=== PATIENT | male | born 1945 | race Caucasian/White ===

== ENCOUNTER 2021-01-26 15:53 | Outpatient (REF) | payer MEDICARE, BC, SELFPAY ==
[2021-01-26 20:53] LABS: HCT 38.4 % (40.0-50.0); HGB 12.3 g/dL (13.5-17.5); MCH 29.5 pg (27.0-33.0); MCV 92.1 fL (80-95); MPV 9.8 fL (8.0-11.0); Platelet Count 193 10^3/uL (130-400); RBC 4.17 10^6/uL (4.36-5.78); RDW 13.5 % (11.8-14.1); RDW-SD 45.6 fL; WBC 5.01 10^3/uL (4.4-10.8)
[2021-01-26 21:38] LABS: ALT 11 U/L (16-63); AST 20 U/L (15-37); Albumin 4.5 g/dL (3.4-5.0); Alkaline Phosphatase 60 U/L (46-116); Anion Gap 7.8 mmol/L (3-11); BUN 21 mg/dL (7-18); Bilirubin, Total 0.3 mg/dL (0.2-1.0); CO2 29.2 mmol/L (21.0-32.0); CREATININE 0.8 mg/dL (0.70-1.30); Calcium 9.9 mg/dL (8.5-10.1); Chloride 105 mmol/L (98-107); Glucose 78 mg/dL (74-106); Potassium 5.3 mmol/L (3.5-5.1); Sodium 142 mmol/L (136-145); TSH (W/Ref FT4) 0.91 uIU/mL (0.36-3.74)
== END 2021-01-26 15:54 | disposition home or self-care (01) ==
LOC: NCHCN 15:53
PROVIDERS: Visit Provider Nurse Practitioner Family
DX: E06.3 Autoimmune thyroiditis (principal); D51.0 Vitamin B12 deficiency anemia due to intrinsic factor deficiency; I10 Essential (primary) hypertension
CPT/HCPCS: 80053; 85027; 84443

== ENCOUNTER 2021-07-24 08:27 | Outpatient (CLI) | payer MEDICARE, BC, SELFPAY ==
--- NOTE | 2021-07-24 08:15 | RT.EKG_ITS ---
APPROVED REPORT Exam: Resting ECG Reason for Exam: MR Patient Location: O HR:83 bpm ECG Measurements Heart Rate 83 AXIS ND 153 P 67 QRSd 91 QRS -13 QT 391 T -60 QTc 460 Conclusion Sinus rhythm...normal P axis, V-rate 50- 99 Probable left atrial enlargement...P >50mS, <-0.10mV V1 Left ventricular hypertrophy...multiple voltage criteria Borderline T abnormalities, inferior leads...T flat/neg, II III aVF
== END 2021-07-24 08:28 | disposition home or self-care (01) ==
LOC: DI.CARD 08:28
PROVIDERS: Visit Provider Internal Medicine Cardiovascular Disease
DX: I34.0 Nonrheumatic mitral (valve) insufficiency (principal); I51.7 Cardiomegaly; R94.31 Abnormal electrocardiogram [ECG] [EKG]
CPT/HCPCS: 93010

== ENCOUNTER → 2021-07-24 10:20 | Outpatient (BNVA) | payer MEDICARE, BC, SELFPAY | PROVIDERS: PCP Nurse Practitioner Family; Visit Provider Internal Medicine Cardiovascular Disease | DX: I34.0 Nonrheumatic mitral (valve) insufficiency (principal); I10 Essential (primary) hypertension; M32.9 Systemic lupus erythematosus, unspecified | CPT/HCPCS: 93005; 99203 ==

== ENCOUNTER 2021-08-30 13:01 | Outpatient (REF) | payer MEDICARE, BC, SELFPAY ==
[2021-08-30 22:15] LABS: Abs Immature Grans 0.01 10^3/uL (0.0-0.06); Absolute Basophil Count 0.06 10^3/uL (0.0-0.2); Absolute Eosinophil Count 0.09 10^3/uL (0.0-0.7); Absolute Monocyte Count 0.67 10^3/uL (0.1-0.8); Absolute Neutrophil Count 4.57 10^3/uL (1.2-6.7); Basophils % 0.8; Eosinophils % 1.3; HCT 38.7 % (40.0-50.0); HGB 12.4 g/dL (13.5-17.5); Immature Grans % 0.1; MCH 29.9 pg (27.0-33.0); MCV 93.3 fL (80-95); MPV 9.3 fL (8.0-11.0); Monocytes % 9.3; Neutrophils % 63.5; Nucleated RBC 0 %; Platelet Count 257 10^3/uL (130-400); RBC 4.15 10^6/uL (4.36-5.78); RDW 13.2 % (11.8-14.1); RDW-SD 45.3 fL
[2021-08-30 22:51] LABS: ALT 13 U/L (16-63); AST 17 U/L (15-37); Albumin 4.3 g/dL (3.4-5.0); Alkaline Phosphatase 65 U/L (46-116); Anion Gap 9.3 mmol/L (3-11); BUN 19 mg/dL (7-18); Bilirubin, Total 0.2 mg/dL (0.2-1.0); CO2 26.7 mmol/L (21.0-32.0); CREATININE 0.9 mg/dL (0.70-1.30); Calcium 9.7 mg/dL (8.5-10.1); Chloride 106 mmol/L (98-107); Glucose 57 mg/dL (74-106); Potassium 4.3 mmol/L (3.5-5.1); Sodium 142 mmol/L (136-145); TSH (W/Ref FT4) 0.59 uIU/mL (0.36-3.74); Total Protein 7.9 g/dL (6.4-8.2); Vitamin B12 174 pg/mL (193-986)
[2021-08-31 05:41] LABS: Vitamin D 25 Total 21.6 ng/mL (30-100)
== END 2021-08-30 13:02 | disposition home or self-care (01) ==
LOC: NCHCN 13:01
PROVIDERS: PCP Nurse Practitioner Family; Visit Provider Nurse Practitioner Family
DX: E04.1 Nontoxic single thyroid nodule (principal); E55.9 Vitamin D deficiency, unspecified; E53.8 Deficiency of other specified B group vitamins
CPT/HCPCS: 80053; 82306; 82607; 84443; 85025

== ENCOUNTER 2021-11-08 18:33 | Outpatient (REF) | payer MEDICARE, BC, SELFPAY ==
[2021-11-08 22:37] LABS: Iron 31 ug/dL (65-175); Total Iron Binding Capacity 324 ug/dL (250-450); Transferrin Sat 10 % (20-55)
== END 2021-11-08 18:34 | disposition home or self-care (01) ==
LOC: NCHCN 18:33
PROVIDERS: PCP Nurse Practitioner Family; Visit Provider Nurse Practitioner Family
DX: D50.9 Iron deficiency anemia, unspecified (principal)
CPT/HCPCS: 83540; 83550

== ENCOUNTER 2021-12-28 16:36 | Outpatient (REF) | payer MEDICARE, BC, SELFPAY ==
[2021-12-28 16:18] LABS: Iron 36 ug/dL (65-175); Total Iron Binding Capacity 309 ug/dL (250-450); Transferrin Sat 12 % (20-55)
== END 2021-12-28 16:37 | disposition home or self-care (01) ==
LOC: NCHCN 16:36
PROVIDERS: PCP Nurse Practitioner Family; Visit Provider Nurse Practitioner Family
DX: D51.0 Vitamin B12 deficiency anemia due to intrinsic factor deficiency (principal)
CPT/HCPCS: 83540; 83550

== ENCOUNTER 2022-02-14 01:43 | Outpatient (RCR) | payer MEDICARE, BC, SELFPAY ==
[2022-01-31] MEDS: IRON SUCROSE COMPLEX 100 MG in Normal Saline 100 ML 420 MG IVPB (09:37)
[2022-01-31] MEDS: Normal Saline Flush 10 ML SYR IVP (09:37)
== END 2022-02-28 23:59 | disposition home or self-care (01) ==
LOC: INF 01:43
PROVIDERS: PCP Nurse Practitioner Family; Visit Provider Family Medicine
DX: D50.9 Iron deficiency anemia, unspecified (principal)
CPT/HCPCS: 96365; J1756

== ENCOUNTER 2022-03-21 02:07 | Outpatient (RCR) | payer MEDICARE, BC, SELFPAY ==
[2022-03-07] MEDS: IRON SUCROSE COMPLEX 100 MG in Normal Saline 100 ML 420 MG IVPB (08:07)
[2022-03-07] MEDS: Normal Saline Flush 10 ML SYR IVP (08:12)
[2022-03-14] MEDS: IRON SUCROSE COMPLEX 100 MG in Normal Saline 100 ML 420 MG IVPB (08:05)
[2022-03-14] MEDS: Normal Saline Flush 10 ML SYR IVP ×2 (08:05→08:27)
[2022-03-21] MEDS: IRON SUCROSE COMPLEX 100 MG in Normal Saline 100 ML 420 MG IVPB (08:22)
[2022-03-21] MEDS: Normal Saline Flush 10 ML SYR IVP (08:26)
== END 2022-03-30 23:59 | disposition home or self-care (01) ==
LOC: INF 02:07
PROVIDERS: PCP Nurse Practitioner Family; Visit Provider Family Medicine
DX: D50.9 Iron deficiency anemia, unspecified (principal)
CPT/HCPCS: 96365; J1756

== ENCOUNTER 2022-04-04 02:05 | Outpatient (RCR) | payer MEDICARE, BC, SELFPAY ==
[2022-04-04] MEDS: Normal Saline Flush 10 ML SYR IVP (08:06)
[2022-04-04] MEDS: IRON SUCROSE COMPLEX 100 MG in Normal Saline 100 ML 420 MG IVPB (08:06)
[2022-04-04 08:41] LABS: Ferritin 145 ng/mL (26-388)
== END 2022-04-30 23:59 | disposition home or self-care (01) ==
LOC: INF 02:05
PROVIDERS: PCP Nurse Practitioner Family; Visit Provider Family Medicine
DX: D50.9 Iron deficiency anemia, unspecified (principal)
CPT/HCPCS: 36415; 96365; 82728; J1756

== ENCOUNTER 2022-05-14 17:43 | Outpatient (REF) | payer MEDICARE, BC, SELFPAY ==
[2022-05-14 22:39] LABS: Vitamin D 25 Total 23.1 ng/mL (30-100)
[2022-05-14 22:46] LABS: Vitamin B12 220 pg/mL (193-986)
== END 2022-05-14 17:44 | disposition home or self-care (01) ==
LOC: NCHCN 17:43
PROVIDERS: PCP Nurse Practitioner Family; Visit Provider Nurse Practitioner Family
DX: E55.9 Vitamin D deficiency, unspecified (principal); E53.8 Deficiency of other specified B group vitamins; E06.3 Autoimmune thyroiditis; I27.20 Pulmonary hypertension, unspecified; K21.9 Gastro-esophageal reflux disease without esophagitis
CPT/HCPCS: 82306; 82607

== ENCOUNTER 2022-10-16 18:23 | Outpatient (REF) | payer MEDICARE, BC, SELFPAY ==
[2022-10-16 21:15] LABS: HCT 38.1 % (40.0-50.0); HGB 12.4 g/dL (13.5-17.5); MCH 29.2 pg (27.0-33.0); MCHC 32.5 % (32.0-36.0); MCV 90 fL (80-95); Platelet Count 224 10^3/uL (130-400); RBC 4.25 10^6/uL (4.36-5.78); RDW 13.2 % (11.8-14.1); RDW-SD 43.3 fL; WBC 5.14 10^3/uL (4.4-10.8)
[2022-10-16 21:53] LABS: ALT 16 U/L (16-63); AST 18 U/L (15-37); Albumin 3.8 g/dL (3.4-5.0); Alkaline Phosphatase 81 U/L (46-116); Anion Gap 5.5 mmol/L (3-11); BUN 21 mg/dL (7-18); Bilirubin, Total 0.4 mg/dL (0.2-1.0); CO2 30.5 mmol/L (21.0-32.0); CREATININE 0.8 mg/dL (0.70-1.30); Calcium 9.2 mg/dL (8.5-10.1); Chloride 105 mmol/L (98-107); Estimated GFR 91.72 (mL/min/1.73m2); Glucose 111 mg/dL (74-106); Potassium 3.7 mmol/L (3.5-5.1); Sodium 141 mmol/L (136-145); TSH (W/Ref FT4) 0.86 uIU/mL (0.36-3.74); Total Protein 7.5 g/dL (6.4-8.2); Vitamin B12 198 pg/mL (193-986)
[2022-10-16 22:12] LABS: Iron 66 ug/dL (65-175)
== END 2022-10-16 18:24 | disposition home or self-care (01) ==
LOC: NCHCN 18:23
PROVIDERS: PCP Nurse Practitioner Family; Visit Provider Nurse Practitioner Family
DX: I10 Essential (primary) hypertension (principal); D50.9 Iron deficiency anemia, unspecified; E53.8 Deficiency of other specified B group vitamins; E03.8 Other specified hypothyroidism
CPT/HCPCS: 80053; 85027; 82607; 83540; 84443

== ENCOUNTER → 2023-08-08 01:21 | Outpatient (CLI) | payer MEDICARE, BC, SELFPAY ==
--- NOTE | 2023-08-08 08:29 | DI.US_ITS ---
APPROVED REPORT EXAM: Comprehensive 2D, Doppler, and color-flow Echocardiogram Patient Location: Out-Patient Mortgage Closer: Purvi Clarke RDCS Rhythm: Sinus Bradycardia. Indications: H/O Repair of mitral valve. Other Information Study Quality: Fair Conclusion The atria are moderately to severely dilated, ventricles normal sizes. Mild to moderate concentric LVH,EF 65%. Normal RV function. 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 No pericardial effusion. Wall motion Left Ventricle The left ventricle is normal size. The left ventricular systolic function is normal. The left ventric ular ejection fraction is within the normal range. Borderline concentric left ventricular hypertrophy . Intermittent interventricular septal bounce is suggestive of RV pressure volume overlaod. Diastolic indices are indeterminate. There is no ventricular septal defect visualized. LVEF is 60-65%. [place] [facility] [place], EF = 57 % with abnormal septal motion post sternotomy. Right Ventricle The right ventricle is normal size. The right ventricular systolic function is normal. There is adiel l right ventricular wall thickness. Moderator band is seen in the right ventricle. Atria The left atrium size is normal. Right atrium is mildly dilated. Small PFO is noted, with right to lef t flow- a common variant. Aortic Valve Aortic valve is trileaflet. Aortic valve leaflets are mildly thickened. There is no aortic valvular s tenosis. Mild to moderate aortic regurgitation. 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 Trace tristen l regurgitation. Annuloplasty ring is present, size is 28 mm. The date of insertion is 09/29/2021 at [facility] [place]. The mean gradient across the prosthesis is 3.3 mmHg. Tricuspid Valve The tricuspid valve leaflets are thickened , but open well. There is mild prolapse of the anterior tr icuspid leaflet There is no tricuspid valve stenosis. Moderate tricuspid regurgitation. Moderate pulm onary hypertension. The RVSP is 50-55 mmHg. Pulmonic Valve The pulmonary valve is normal in structure. There is no pulmonic valvular stenosis. Mild pulmonic reg urgitation. Great Vessels The aortic root is normal in size. The pulmonary artery is normal. The ascending aorta is normal in s ize. Aortic arch is normal in caliber. IVC is normal in size and collapses >50% with inspiration. Pericardium There is no pericardial effusion. 2D Dimensions IVSD d PLAX 1.12 cm M: 0.6-1.2 Ao Root d 3.62 cm M: 3.1 - 3.7 LVPW d PLAX 1.16 cm M: 0.6 - 1.2 Ao Asc Diam d 3.21 cm M: 2.6 - 3.4 LVID d PLAX 4.08 cm M: 4.2 - 5.8 Prox Ao Arch 3.2 cm LVDs 2.44 cm M: 2.5 - 4.0 RVID Mid Diam 2.91 cm LV EF Teichholz 71.3 % RVID Base Diam (A4C) 3.04 cm (M/F) 2.5-4.1 FS 40.17 % IVC Diam exp d SLAX 2.3 cm LV EDV (Teich) 73.2 mL LV ESV (Teich) 21.0 mL M-Mode TAPSE 1.61 cm (M/F) >1.7 Auto EF LV EDV A4C 57.6 mL LV EDV A2C 92.4 mL LV EDV BP 74.0 mL LV ESV A4C 25.9 mL LV ESV A2C 39.4 mL LV ESV BP 32.2 mL LVEF(%) A4C 55.0 % LVEF(%) A2C 57.4 % LVEF(%) BP 56.5 % LV SV A4C 31.7 ml LV SV A2C 53.1 ml LV SV BP 41.8 ml LV CO A4C 1.7 L/min LV CO A2C 2.8 L/min LV CO BP 2.3 L/min HR A4C 53.90 BPM HR A2C 53.10 BPM LV EDV Index (BP) LV Strain Long Pk Overal Avg (s) 16.27 LA Volume LA Length A4C 6.0 cm LA Length A2C 4.9 cm LA Area A4C s 20.11 cm2 LA Area A2C s 13.77 cm2 LA Vol A4C A-L 57.15 mL LA Vol A2C A-L 33.16 mL LA Vol Biplane A-L 48.4 mL LA Vol/BSA A4C A-L LA Vol/BSA A2C A-L LA Vol/BSA BP A-L 32.7 mL/m2 LA Vol A4C MOD 54.4 mL LA Vol A2C MOD 31.8 mL LA Vol BP MOD 45.5 mL RA Volume RA Area A4C 19.5 cm2 RA ESV A4C (A-L) 58.3mL RA Vol/BSA A4C A-L RA Length A4C 5.5 cm RA ESV A4C (MOD) 56.1mL LV Diastology MV E' medial 0.044 (>0.07 m/s) MV E Vmax 1.18 (0.4-1.3 m/s) MV E/E' MED 26.90 (<14) MV A Vmax 1.10 (0.4-1.3 m/s) MV E' lateral 0.070 (>0.1 m/s) E/A Ratio 1.1 MV E/E' LAT 16.83 (<14) MV E' Average 0.057 m/s MV E/E'(average) 20.71 Aortic Valve AoV Vmax 1.36 m/s LVOT Vmax 1.07 m/s AoV Peak Grad 44.7 mmHg LVOT Peak Grad 4.6 mmHg AoV Area (Vmax) 2.40 cm2 LVOT VTI 0.258 m AoV VTI 0.276 m LVOT Mean Grad 1.8 mmHg AoV Mean Suman. 0.94 m/s LVOT SV 78.81 mL AoV Mean Grad 3.9 mmHg LVOT Diam s 1.95 cm AoV Area (VTI) 2.86 cm2 AV Regurg Peak Gr. 81.85 mmHg Velocity Ratio 0.79 AR Decel [place] 2.3m/sec2 AR DT 2008 msec AR PHT 582 msec AR Vmax 4.52 m/s Mitral Valve MV DT 271 (160-240 msec) MV Vmax TIPS 1.56 m/s MV Mean Grad 3.2 (<2mmHg) MV PHT 100 msec MV Area PHT 2.19 cm2 MV VTI 0.616 m Pulm Vein s 0.54 m/s Pulm Vein d 0.33 m/s Pulm Vein a 0.22 m/s Pulmonary Valve PV Vmax 1.14 (0.5-1.5 m/s) RVOT Vmax 0.49 m/s PV Peak Grad 5.2 mmHg RVOT Peak Gr. 1.0 mmHg PV Mean Suman 0.72 m/s RVOT VTI 0.098 m PV Mean Grad 2.4 mmHg RVOT Mean Gr. 0.4 mmHg IA ED Velocity 1.06 m/s IA ED Grad 4.5 mmHg Tricuspid Valve RA Pressure 8.00 mmHg TR Vmax 3.36 m/s TV S' 0.11 m/s TR Peak Grad 45.1 mmHg RVSP (TR) 53.2 mmHg Shunt Evaluation Pulmonic VTI (Qp) 10.6 cm Systemic VTI (Qs) 19.7 cm QP / QS 0.98 Pulmonic Diameter 2.7 cm Systemic Diameter 2.0 cm
== END ==
PROVIDERS: PCP Nurse Practitioner Family; Visit Provider Nurse Practitioner Family
DX: Z98.890 Other specified postprocedural states (principal)
CPT/HCPCS: 93306

== ENCOUNTER 2023-12-10 22:06 | Outpatient (REF) | payer MEDICARE, BC, SELFPAY ==
[2023-12-10 22:17] LABS: Abs Immature Grans 0.02 10^3/uL (0.0-0.06); Absolute Basophil Count 0.03 10^3/uL (0.0-0.2); Absolute Eosinophil Count 0.02 10^3/uL (0.0-0.7); Absolute Lymphocyte Count 0.99 10^3/uL (1.2-3.4); Absolute Monocyte Count 0.39 10^3/uL (0.1-0.8); Absolute Neutrophil Count 3.59 10^3/uL (1.2-6.7); Basophils % 0.6 %; Eosinophils % 0.4 %; HCT 36.6 % (36.0-46.0); HGB 11.6 g/dL (11.2-15.7); Immature Grans % 0.4 %; Lymphocytes % 19.6 %; MCH 30.1 pg (27.0-33.0); MCHC 31.7 % (32.0-36.0); MCV 95 fL (80-95); MPV 9.4 fL (8.0-11.0); Monocytes % 7.7 %; Neutrophils % 71.3 %; Platelet Count 215 10^3/uL (130-400); RBC 3.86 10^6/uL (3.93-5.22); RDW 14.1 % (11.7-14.6); RDW-SD 49.1 fL; WBC 5.04 10^3/uL (4.4-10.8)
[2023-12-10 22:50] LABS: ALT 22 U/L (14-59); AST 18 U/L (15-37); Albumin 3.6 g/dL (3.4-5.0); Alkaline Phosphatase 78 U/L (46-116); Anion Gap 7.8 mmol/L (3-11); BUN 18 mg/dL (7-18); Bilirubin, Total 0.5 mg/dL (0.2-1.0); CO2 30.2 mmol/L (21.0-32.0); CREATININE 0.8 mg/dL (0.55-1.02); Chloride 104 mmol/L (98-107); Estimated GFR 75.84 (mL/min/1.73m2); Glucose 89 mg/dL (74-106); Sodium 142 mmol/L (136-145); TSH (W/Ref FT4) 1.08 uIU/mL (0.36-3.74); Total Protein 6.6 g/dL (6.4-8.2); Vitamin D 25 Total 22.1 ng/mL (30-100)
== END 2023-12-10 22:07 | disposition home or self-care (01) ==
LOC: NCHCN 22:06
PROVIDERS: PCP Nurse Practitioner Family; Visit Provider Nurse Practitioner Family
DX: E03.9 Hypothyroidism, unspecified (principal); E55.9 Vitamin D deficiency, unspecified; Z51.81 Encounter for therapeutic drug level monitoring
CPT/HCPCS: 80053; 82306; 84443; 85025

== ENCOUNTER → 2024-01-29 01:02 | Outpatient (CLI) | payer MEDICARE, BC, SELFPAY ==
--- NOTE | 2024-01-29 | DI.US_ITS ---
Exam(s) US THYROID EXAM: US THYROID CLINICAL HISTORY: THYROID NODULE E04.1. TECHNIQUE: Ultrasound thyroid performed using standard protocol. COMPARISON: No exams were available for comparison FINDINGS: ISTHMUS: 2 mm RIGHT LOBE: Size: 3.8 x 1.6 x 1.0 cm Echogenicity: Normal. Vascularity: Normal. Nodules: None. LEFT LOBE: Size: 4.1 x 1.2 x 1.0 cm Echogenicity: Normal. Vascularity: Normal. Nodules: 4 x 2 x 2 millimeter spongiform nodule upper pole, TR 1. OTHER FINDINGS: None. IMPRESSION: No suspicious thyroid nodules. DATA REPOSITORY:
== END ==
PROVIDERS: PCP Nurse Practitioner Family; Visit Provider Nurse Practitioner Family
DX: E04.1 Nontoxic single thyroid nodule (principal)
CPT/HCPCS: 76536

== ENCOUNTER 2024-07-24 14:32 | Outpatient (REF) | payer MEDICARE, BC, SELFPAY ==
[2024-07-24 21:05] LABS: Abs Immature Grans 0.02 10^3/uL (0.0-0.06); Absolute Basophil Count 0.04 10^3/uL (0.0-0.2); Absolute Eosinophil Count 0.02 10^3/uL (0.0-0.7); Absolute Lymphocyte Count 1.12 10^3/uL (1.2-3.4); Absolute Monocyte Count 0.39 10^3/uL (0.1-0.8); Absolute Neutrophil Count 3.58 10^3/uL (1.2-6.7); Basophils % 0.8 %; Eosinophils % 0.4 %; HCT 38.3 % (36.0-46.0); HGB 12.1 g/dL (11.2-15.7); Immature Grans % 0.4 %; Lymphocytes % 21.7 %; MCH 29.9 pg (27.0-33.0); MCHC 31.6 % (32.0-36.0); MCV 95 fL (80-95); MPV 9.3 fL (8.0-11.0); Monocytes % 7.5 %; Neutrophils % 69.2 %; Platelet Count 228 10^3/uL (130-400); RBC 4.05 10^6/uL (3.93-5.22); RDW-SD 45.1 fL; WBC 5.17 10^3/uL (4.4-10.8)
[2024-07-24 21:25] LABS: Iron 85 ug/dL (50-170); Total Iron Binding Capacity 303 ug/dL (250-450); Transferrin Sat 28 % (15-50)
[2024-07-24 21:49] LABS: ALT 16 U/L (14-59); AST 22 U/L (15-37); Alkaline Phosphatase 58 U/L (46-116); Anion Gap 6.5 mmol/L (3-11); BUN 16 mg/dL (7-18); Bilirubin, Total 0.33 mg/dL (0.2-1.0); CO2 29.5 mmol/L (21.0-32.0); Calcium 9.1 mg/dL (8.5-10.1); Chloride 107 mmol/L (98-107); Ferritin 67 ng/mL (8-252); Folate 18.6 ng/mL (8.6-20.0); Glucose 84 mg/dL (74-106); Potassium 4.3 mmol/L (3.5-5.1); Sodium 143 mmol/L (136-145); TSH (W/Ref FT4) 0.64 uIU/mL (0.36-3.74); Total Protein 7.2 g/dL (6.4-8.2); Vitamin D 25 Total 21.1 ng/mL (30-100)
[2024-07-24 22:36] LABS: CREATININE 0.5 mg/dL (0.55-1.02); Estimated GFR 95.94 (mL/min/1.73m2); Vitamin B12 < 80 pg/mL (193-986)
== END 2024-07-24 14:33 | disposition home or self-care (01) ==
LOC: NCHCN 14:32
PROVIDERS: PCP Nurse Practitioner Family; Visit Provider Nurse Practitioner Family
DX: R79.89 Other specified abnormal findings of blood chemistry (principal); E03.9 Hypothyroidism, unspecified; E55.9 Vitamin D deficiency, unspecified; D50.9 Iron deficiency anemia, unspecified; I10 Essential (primary) hypertension; D51.0 Vitamin B12 deficiency anemia due to intrinsic factor deficiency
CPT/HCPCS: 80053; 82306; 82607; 82728; 82746; 83540; 83550; 84443; 85025

== ENCOUNTER 2024-10-12 13:00 | Outpatient (REF) | payer MEDICARE, BC, SELFPAY ==
[2024-10-12 15:25] LABS: Vitamin B12 182 pg/mL (193-986)
== END 2024-10-12 13:01 | disposition home or self-care (01) ==
LOC: NCHCN 13:00
PROVIDERS: PCP Nurse Practitioner Family; Visit Provider Nurse Practitioner Family
DX: E53.9 Vitamin B deficiency, unspecified (principal)
CPT/HCPCS: 82607